=== PATIENT | male | born 1965 | race Caucasian/White ===

== ENCOUNTER 2017-02-04 16:48 | Emergency (ER) | payer OTHER ==
[~2017-02-04] VITALS: Ht 177.8 cm; Wt 65.0 kg
[~2017-02-04 16:48] MED LIST: ASPI325T
[2017-02-04 16:50] VITALS: BP 130/79; PULSE 99; RESP 20; TEMP 98; O2SAT 97
--- NOTE | 2017-02-04 17:29 | PD ---
Physical Exam Time Seen by Provider: 17:28 Narrative 51yo M c/o cut to left lower jerez from last Saturday that started getting infected w/ drainage, pain, redness last night. Denies fever, vomiting. Patient seen in triage. VS reviewed. Awaiting bed placement. Data Data Last Documented VS Vital Signs Date Time Temp Pulse Resp B/P Pulse Ox O2 Delivery O2 Flow Rate FiO2 02/04/17 16:50 98.0 99 20 130/79 97 Room Air MDM Supervised Visit with NIA: Kimi Sanchez Feb 04, 2017 17:29
== END 2017-02-04 20:10 | disposition left against medical advice (07) ==
LOC: NED 16:48
DX: Z51.89 Encounter for other specified aftercare (principal); Z53.21 Procedure and treatment not carried out due to patient leaving prior to being seen by health care provider
CPT/HCPCS: 99281